=== PATIENT | male | born 1970 | race Caucasian/White ===

== ENCOUNTER 2019-03-18 11:04 | Day surgery (SDC) | payer BC ==
--- NOTE | 2019-03-18 08:00 | HP ---
DATE OF SURGERY: 03/18/2019 ADMISSION DIAGNOSIS: Left inguinal hernia. ANTICIPATED PROCEDURE: Repair. HISTORY OF PRESENT ILLNESS: The patient has moderate sized symptomatic left inguinal hernia. PAST MEDICAL HISTORY: ALLERGIES: NONE. MEDICATIONS: Metoprolol, atorvastatin. PAST SURGICAL HISTORY: Eardrum replacement. SOCIAL HISTORY: Negative. FAMILY HISTORY: Negative. REVIEW OF SYSTEMS: Hypertension, cholesterol. PHYSICAL EXAMINATION: VITAL SIGNS: Normal. CHEST: Clear. COR: Regular. ABDOMEN: Left inguinal hernia. IMPRESSION: Symptomatic left inguinal hernia. PLAN: Repair.
[~2019-03-18 11:04] MED LIST: KEFZOL 1 GM ONE; Lactated Ringers 0 ML IV ONE; Sensorcaine 0.25% 10 ML ONE
[2019-03-18] MEDS ORDERED: Lactated Ringers 1,000 ML IV SCH (11:30)
[2019-03-18] MEDS ORDERED: CEFAZOLIN 2 GM-D5W BAG** 2 GM/50 ML ML IV SCH (11:30)
[2019-03-18] MEDS ORDERED: Versed 2 MG/2 ML Injection ONE (11:53)
[2019-03-18] MEDS ORDERED: DIPRIVAN 200 MG/20 ML IV ONE (11:53)
[2019-03-18] MEDS ORDERED: SUBLIMAZE 250 MCG/5 ML ONE (11:53)
[2019-03-18] MEDS ORDERED: TORAdol 30 mg Injection ONE (14:39)
[2019-03-18] MEDS ORDERED: MORPHINE SULFATE 10 MG/ML ONE (14:39)
[2019-03-18] MEDS ORDERED: Zofran 4 MG/2 ML VIAL ONE (14:39)
[2019-03-18] MEDS ORDERED: SUBLIMAZE 100 MCG/2 ML ONE (14:48)
[2019-03-18] MEDS ORDERED: NORCO 7.5/325 MG TAB PO PRN (15:43)
[2019-03-18] MEDS ORDERED: NORCO 7.5/325 MG TAB ONE (15:45)
[2019-03-18 16:19] VITALS: O2SAT 98
[2019-03-18 16:49] VITALS: BP 142/62; PULSE 59
--- NOTE | 2019-03-19 08:05 | OP ---
SURGERY DATE/TIME: 03/18/2019 1334 PREOPERATIVE DIAGNOSIS: Symptomatic left inguinal hernia. POSTOPERATIVE DIAGNOSIS: Symptomatic left inguinal hernia. PROCEDURE: Left inguinal herniorrhaphy with mesh. SURGEON: Evaristo Walden M.D. ANESTHESIA: General. COMPLICATIONS: None. CONDITION: Stable. INDICATION: The patient with symptomatic left inguinal hernia. DESCRIPTION OF PROCEDURE: Taken to surgery. General anesthetic. Routine prep and drape. Kidney rest was up. 0.25% Marcaine. Time out performed. Curvilinear incision. External oblique opened. A 3 inch indirect hernia sac. There was incarcerated omentum. A band was cut. The omentum reduced. High ligation of sac with 0 Prolene under direct visualization. The floor was reinforced with 1 x 4 mesh Patel's ligament type fashion with 0 Prolene making sure not to entrap any underlying nerve fibers. Internal ring was one clamp tight. Cord, ilioinguinal nerve laid back in natural position. External oblique closed with 0 Vicryl. Jimena fascia closed with 2-0 Vicryl. Skin closed 4-0 Vicryl. Sterile dressing applied. The patient tolerated the procedure satisfactorily.
== END 2019-03-18 16:55 | disposition home or self-care (01) ==
LOC: SDC 11:04
PROVIDERS: ATTEND Surgery
DX: K40.90 Unilateral inguinal hernia, without obstruction or gangrene, not specified as recurrent (principal); I10 Essential (primary) hypertension; E78.00 Pure hypercholesterolemia, unspecified
CPT/HCPCS: 49505; C1781; J0690; J1885; J2250; J2270; J2405; J2704; J3010; A9270-GY

== ENCOUNTER 2020-07-24 00:04 | Emergency (ER) | payer BC ==
[2020-07-24] MEDS ORDERED: Ativan 1 MG PO ONE (00:17)
--- NOTE | 2020-07-24 00:17 | ERPHSYRPT ---
- History of Present Illness Time Seen by Provider: 07/24/20 00:06 Source: patient Exam Limitations: no limitations Physician History: About 1 hour ago pt started itching and erupted in hives all over with shortness of air. Pt denies chest pain, vomiting, abdominal pain, nausea. EMS states they gave 125mg solumedrol IV. Allergies/Adverse Reactions: No Known Drug Allergies Allergy (Unverified 03/18/19 11:20) Home Medications: Aspirin EC 81 mg [Ecotrin 81 mg] 81 mg PO DAILY 03/18/19 [History] Atorvastatin Calcium [Lipitor] 10 mg PO DAILY 03/18/19 [History] Metoprolol Succinate 50 mg [Toprol Xl 50 MG] 50 mg PO DAILY 03/18/19 [History] - Review of Systems Constitutional: No Fever Respiratory: Dyspnea Cardiac: No Chest Pain Abdominal/Gastrointestinal: No Abdominal Pain, No Nausea, No Vomiting Musculoskeletal: No Neck Pain Skin: Rash (hives about 1 hour ago.) Neurological: No Headache All Other Systems: Reviewed and Negative - Past Medical History Pertinent Past Medical History: Yes Neurological History: No Pertinent History ENT History: No Pertinent History Cardiac History: High Cholesterol, Hypertension Respiratory History: No Pertinent History Endocrine Medical History: Other Musculoskeletal History: No Pertinent History GI Medical History: Hernia History: No Pertinent History Psycho-Social History: No Pertinent History Male Reproductive Disorders: No Pertinent History Other Medical History: pre-diabetic- diet controlled. 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" - Past Surgical History Past Surgical History: Yes Neuro Surgical History: No Pertinent History Cardiac: No Pertinent History Respiratory: No Pertinent History Gastrointestinal: No Pertinent History Genitourinary: No Pertinent History Musculoskeletal: No Pertinent History Male Surgical History: Vasectomy Other Surgical History: ear drum replacement left side - Social History Smoking Status: Never smoker Exposure to second hand smoke: No Drug Use: none - Nursing Vital Signs Nursing Vital Signs: Initial Vital Signs Pulse Rate 102 H 07/24/20 00:09 Respiratory Rate 18 07/24/20 00:09 Blood Pressure 154/93 07/24/20 00:09 O2 Sat by Pulse Oximetry 98 07/24/20 00:09 Pain Scale Pain Intensity 0 - Physical Exam General Appearance: alert Eye Exam: PERRL/EOMI Ears, Nose, Throat Exam: pharynx normal, other (no pharyngeal edema) Neck Exam: normal inspection Respiratory Exam: normal breath sounds Cardiovascular Exam: normal heart sounds Gastrointestinal/Abdomen Exam: soft, normal bowel sounds Back Exam: normal inspection Extremity Exam: No pedal edema Neurologic Exam: alert, cooperative Skin Exam: rash (hives over extremities, chest & abdomen) SpO2 Interpretation: normal SpO2: 98 O2 Delivery: Room Air - Course Nursing assessment & vital signs reviewed: Yes EKG Interpreted by Me: RATE (82), Sinus Rhythm, NORMAL AXIS, NORMAL INTERVALS - CT Exams Chest CT Interpretation: Tele-radiologist Report (Within limitations of the study, no pulmonary emboli.) Ordered Tests: Active Orders 24 hr Category Date Time Status Rubber Goods Assembler STAT Care 07/24/20 00:17 Active EKG-ER Only STAT Care 07/24/20 00:17 Active IV Insertion STAT Care 07/24/20 00:17 Active Pulse Oximetry (ED) STAT Care 07/24/20 00:17 Active CHEST 2 VIEWS (PA AND LAT) Stat Exams 07/24/20 00:19 Taken CHEST WITH CONTRAST [CT] Stat Exams 07/24/20 01:25 Taken CBC W DIFF Stat Lab 07/24/20 00:40 Completed CMP Stat Lab 07/24/20 00:40 Completed D-DIMER QUANTITATIVE Stat Lab 07/24/20 00:40 Completed MAGNESIUM Stat Lab 07/24/20 00:40 Completed NT PRO BNP Stat Lab 07/24/20 00:40 Completed TROPONIN Q3H Lab 07/24/20 00:40 Completed TROPONIN Q3H Lab 07/24/20 03:30 Ordered TROPONIN Q3H Lab 07/24/20 06:30 Ordered TROPONIN Q3H Lab 07/24/20 09:30 Ordered TROPONIN Q3H Lab 07/24/20 12:30 Ordered Medication Summary Discontinued Medications Generic Name Dose Route Start Last Admin Trade Name Freq PRN Reason Stop Dose Admin Lorazepam 1 mg 07/24/20 00:17 07/24/20 00:21 Ativan 1 Mg PO 07/24/20 00:18 1 mg STAT ONE Administration Lorazepam Confirm 07/24/20 00:20 Ativan 1 Mg Administered 07/24/20 00:21 Dose 1 mg .ROUTE .[employer] ONE Lab/Rad Data: Laboratory Result Diagrams 07/24/20 00:40 07/24/20 00:40 Laboratory Results 07/24/20 07/24/20 07/24/20 Range/Units 00:40 00:40 00:40 WBC (4.0-10.5) K/mm3 RBC (4.1-5.6) M/mm3 Hgb (12.5-18.0) gm/dl Hct (42-50) % MCV (78-100) fl MCH (26-32) pg MCHC (32-36) g/dl RDW (11.5-14.0) % Plt Count (150-450) K/mm3 MPV (7.5-11.0) fl Gran % (36.0-66.0) % Eos # (Auto) (0-0.5) Absolute Lymphs (auto) (1.0-4.6) Absolute Monos (auto) (0.0-1.3) Lymphocytes % (24.0-44.0) % Monocytes % (0.0-12.0) % Eosinophils % (0.00-5.0) % Basophils % (0.0-0.4) % Absolute Granulocytes (1.4-6.9) Basophils # (0-0.4) D-Dimer 730 H* (215-500) ng/mL Sodium 139 (137-145) mmol/L Potassium 3.5 (3.5-5.1) mmol/L Chloride 109 H (98-107) mmol/L Carbon Dioxide 24 (22-30) mmol/L Anion Gap 9.4 (5-15) MEQ/L BUN 15 (9-20) mg/dL Creatinine 0.74 (0.66-1.25) mg/dL Estimated GFR > 60.0 ML/MIN Glucose 153 H (74-106) mg/dL Calcium 8.3 L (8.4-10.2) mg/dL Magnesium 1.9 (1.6-2.3) mg/dL Total Bilirubin 1.20 (0.2-1.3) mg/dL AST 26 (17-59) U/L ALT 26 (0-50) U/L Alkaline Phosphatase 92 (38-126) U/L Troponin I < 0.012 (0.000-0.034) ng/mL NT-Pro-B Natriuret Pep 21.6 (0-900) pg/mL Serum Total Protein 6.5 (6.3-8.2) g/dL Albumin 3.9 (3.5-5.0) g/dL 07/24/20 Range/Units 00:40 WBC 8.8 (4.0-10.5) K/mm3 RBC 4.73 (4.1-5.6) M/mm3 Hgb 14.4 (12.5-18.0) gm/dl Hct 43.5 (42-50) % MCV 92.0 (78-100) fl MCH 30.4 (26-32) pg MCHC 33.1 (32-36) g/dl RDW 12.9 (11.5-14.0) % Plt Count 205 (150-450) K/mm3 MPV 10.6 (7.5-11.0) fl Gran % 70.2 H (36.0-66.0) % Eos # (Auto) 0.32 (0-0.5) Absolute Lymphs (auto) 1.70 (1.0-4.6) Absolute Monos (auto) 0.61 (0.0-1.3) Lymphocytes % 19.3 L (24.0-44.0) % Monocytes % 6.9 (0.0-12.0) % Eosinophils % 3.6 (0.00-5.0) % Basophils % 0.0 (0.0-0.4) % Absolute Granulocytes 6.20 (1.4-6.9) Basophils # 0 (0-0.4) D-Dimer (215-500) ng/mL Sodium (137-145) mmol/L Potassium (3.5-5.1) mmol/L Chloride (98-107) mmol/L Carbon Dioxide (22-30) mmol/L Anion Gap (5-15) MEQ/L BUN (9-20) mg/dL Creatinine (0.66-1.25) mg/dL Estimated GFR ML/MIN Glucose (74-106) mg/dL Calcium (8.4-10.2) mg/dL Magnesium (1.6-2.3) mg/dL Total Bilirubin (0.2-1.3) mg/dL AST (17-59) U/L ALT (0-50) U/L Alkaline Phosphatase (38-126) U/L Troponin I (0.000-0.034) ng/mL NT-Pro-B Natriuret Pep (0-900) pg/mL Serum Total Protein (6.3-8.2) g/dL Albumin (3.5-5.0) g/dL - Progress Progress: improved Counseled pt/family regarding: lab results, need for follow-up, rad results - Departure Departure Disposition: Home Clinical Impression: Hives, Dyspnea Condition: Stable Critical Care Time: No Referrals: BEV NORTH MD [Primary Care Provider] - Instructions: Hives (DC), Shortness of Breath (Dyspnea) (DC) Additional Instructions: Follow up with private doctor today. Forms: Work/School Release Form Prescriptions: Hydroxyzine HCl 25 mg [Atarax 25 mg] 50 mg PO Q4H PRN PRN #30 tablet PRN Reason: Itching Methylprednisolone Packet [Medrol Dosepack] 4 mg PO UD #30 packet
[2020-07-24] MEDS ORDERED: Ativan 1 MG ONE (00:20)
[2020-07-24 01:01] LABS: Basophil (Absolute #) 0 (0-0.4); Eosinophil % 3.6 % (0.00-5.0); Eosinophil (Absolute #) 0.32 (0-0.5); Hematocrit 43.5 % (42-50); Hemoglobin 14.4 gm/dl (12.5-18.0); Lymphocytes % 19.3 % (24.0-44.0); Mean Corpuscular Hemoglobin 30.4 pg (26-32); Mean Corpuscular Hgb Concent. 33.1 g/dl (32-36); Mean Platelet Volume 10.6 fl (7.5-11.0); Monocyte (Absolute #) 0.61 (0.0-1.3); Monocytes % 6.9 % (0.0-12.0); Neutrophil % 70.2 % (36.0-66.0); Platelet Count 205 K/mm3 (150-450); Red Blood Count 4.73 M/mm3 (4.1-5.6); Red Cell Distribution Width 12.9 % (11.5-14.0); White Blood Count 8.8 K/mm3 (4.0-10.5)
[2020-07-24 01:09] LABS: ALBUMIN 3.9 g/dL (3.5-5.0); ALKALINE PHOSPHATASE 92 U/L (38-126); ANION GAP 9.4 MEQ/L (5-15); BLOOD UREA NITROGEN 15 mg/dL (9-20); CHLORIDE 109 mmol/L (98-107); Calcium 8.3 mg/dL (8.4-10.2); Carbon Dioxide 24 mmol/L (22-30); Creatinine 1 0.74 mg/dL (0.66-1.25); EST GLOMERULAR FILTRATION RATE > 60.0 ML/MIN; Glucose 153 mg/dL (74-106); MAGNESIUM 1.9 mg/dL (1.6-2.3); NT PRO BNP 21.6 pg/mL (0-900); Potassium 3.5 mmol/L (3.5-5.1); SGOT/AST 26 U/L (17-59); SGPT/ALT 26 U/L (0-50); SODIUM 139 mmol/L (137-145); Total Protein 6.5 g/dL (6.3-8.2)
[2020-07-24 03:06] VITALS: O2SAT 98
[2020-07-24 03:09] VITALS: BP 103/68; PULSE 84
--- NOTE | 2020-07-24 09:04 | XRAY ---
Indication: Allergic reaction. Hives. Difficulty breathing. Comparison: None PA/lateral chest demonstrates normal heart, lungs, and bony thorax.
--- NOTE | 2020-07-24 09:04 | XRAY ---
Indication: Allergic reaction. Difficulty breathing. Elevated d-dimer. Multiple contiguous axial images obtained through the chest using 80 cc Isovue 370 contrast and PE protocol. Comparison: None. There is satisfactory opacification of the pulmonary arteries to include the lobar and segmental branches. No pulmonary embolus. Heart is not enlarged. Aorta is normal in course and caliber. No pathologic mediastinal/hilar lymphadenopathy. Distal esophagus demonstrates circumferential wall thickening, possible esophagitis. Lungs demonstrates moderate bilateral dependent atelectasis. No suspicious pulmonary mass, infiltrate, consolidation, or effusion. Bony thorax intact. Limited upper abdomen demonstrates 1 cm calcified splenic artery aneurysm. Impression: 1. Negative pulmonary embolus. No acute cardiopulmonary abnormalities. 2. Distal esophageal circumferential wall thickening. Rule out esophagitis. 3. Incidental small calcified splenic artery aneurysm. Comment: Preliminary interpretation was made by [facility]. No critical discrepancy.
== END 2020-07-24 03:25 | disposition home or self-care (01) ==
LOC: ED 00:04
DX: L50.9 Urticaria, unspecified (principal); R06.00 Dyspnea, unspecified
CPT/HCPCS: 36415; 71046; 71260; 80053; 83735; 83880; 84484; 85025; 85379; 93005; 93041; 94760; 99284; A9270-GY

== ENCOUNTER 2023-07-27 23:56 | Emergency (ER) | payer BC ==
[2023-07-28] MEDS ORDERED: BENADRYL 25 MG CAPSULE PO ONE (00:17)
[2023-07-28] MEDS ORDERED: solu-MEDROL 125 MG, Sterile H2O 10 ml 2 ML IV ONE ×2 (00:17)
[2023-07-28] MEDS ORDERED: Pepcid 20 MG VIAL IV ONE ×2 (00:17→00:25)
--- NOTE | 2023-07-28 00:20 | ERPHSYRPT ---
- History of Present Illness Time Seen by Provider: 07/28/23 00:18 Source: patient Exam Limitations: no limitations Physician History: Patient is a 53-year-old male presents to our ED for evaluation of pruritus hives on his lower trunk and his legs. Patient has a history of allergy to bee pollen and penicillin. Patient denies exposure to any of these sources. Symptoms started just prior to arrival. Patient had similar symptoms about 5 years ago. No new exposures. No difficulty breathing. No difficulty swallowing. Symptoms are mild to moderate in intensity. No specific worsening or improving factors. Patient voices no other complaints or concerns at this time. Portions of this note were created with voice recognition technology. There may be grammatical, spelling, punctuation or sound alike errors Timing/Duration: today Severity: moderate Modifying Factors: Improves With: nothing Associated Symptoms: denies symptoms Allergies/Adverse Reactions: bee pollen Allergy (Intermediate, Verified 07/28/23 00:13) Swelling Penicillins Allergy (Intermediate, Verified 07/28/23 00:13) Nausea and Vomiting Home Medications: Aspirin EC 81 mg [Ecotrin 81 mg] 81 mg PO DAILY 03/18/19 [History] Atorvastatin Calcium [Lipitor] 10 mg PO DAILY 03/18/19 [History] Metoprolol Succinate 50 mg [Toprol Xl 50 MG] 50 mg PO DAILY 03/18/19 [History] Hx Tetanus, Diphtheria Vaccination/Date Given: Yes Hx Influenza Vaccination/Date Given: No Hx Pneumococcal Vaccination/Date Given: No - Review of Systems Constitutional: No Symptoms, No Fever, No Chills Eyes: No Symptoms Ears, Nose, & Throat: No Symptoms Respiratory: No Symptoms, No Cough, No Dyspnea Cardiac: No Symptoms, No Chest Pain, No Edema, No Syncope Abdominal/Gastrointestinal: No Symptoms, No Abdominal Pain, No Nausea, No Vomiting, No Diarrhea Genitourinary Symptoms: No Symptoms, No Dysuria Musculoskeletal: No Symptoms, No Back Pain, No Neck Pain Skin: No Symptoms, No Rash Neurological: No Symptoms, No Dizziness, No Focal Weakness, No Sensory Changes Psychological: No Symptoms Endocrine: No Symptoms Hematologic/Lymphatic: No Symptoms Immunological/Allergic: No Symptoms All Other Systems: Reviewed and Negative - Past Medical History Pertinent Past Medical History: Yes Neurological History: No Pertinent History ENT History: No Pertinent History Cardiac History: High Cholesterol, Hypertension Respiratory History: No Pertinent History Endocrine Medical History: Other Musculoskeletal History: No Pertinent History GI Medical History: Hernia History: No Pertinent History Psycho-Social History: No Pertinent History Male Reproductive Disorders: No Pertinent History Other Medical History: pre-diabetic- diet controlled. 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" - Past Surgical History Past Surgical History: Yes Neuro Surgical History: No Pertinent History Cardiac: No Pertinent History Respiratory: No Pertinent History Gastrointestinal: No Pertinent History Genitourinary: No Pertinent History Musculoskeletal: No Pertinent History Male Surgical History: Vasectomy Other Surgical History: ear drum replacement left side - Social History Smoking Status: Never smoker Exposure to second hand smoke: No Drug Use: none - Nursing Vital Signs Nursing Vital Signs: Initial Vital Signs Pulse Rate 77 07/28/23 00:11 Respiratory Rate 16 07/28/23 00:11 Blood Pressure 141/102 07/28/23 00:11 O2 Sat by Pulse Oximetry 96 07/28/23 00:11 Pain Scale Pain Intensity 0 - Physical Exam General Appearance: no apparent distress, alert Eye Exam: PERRL/EOMI, eyes nml inspection Ears, Nose, Throat Exam: normal ENT inspection, TMs normal, pharynx normal, moist mucous membranes Neck Exam: normal inspection, non-tender, supple, full range of motion Respiratory Exam: normal breath sounds, lungs clear, airway intact, No respiratory distress Cardiovascular Exam: regular rate/rhythm, normal heart sounds, normal peripheral pulses Gastrointestinal/Abdomen Exam: soft, normal bowel sounds, No tenderness, No mass Back Exam: normal inspection, normal range of motion, No CVA tenderness, No vertebral tenderness Extremity Exam: normal inspection, normal range of motion, pelvis stable Neurologic Exam: alert, oriented x 3, cooperative, normal mood/affect, nml cer ebellar function, nml station & gait, sensation nml, No motor deficits Skin Exam: normal color, warm, dry, No rash Lymphatic Exam: No adenopathy SpO2 Interpretation: normal SpO2: 98 O2 Delivery: Room Air - Course Nursing assessment & vital signs reviewed: Yes Ordered Tests: Medication Summary Discontinued Medications Generic Name Dose Route Start Last Admin Trade Name Freq PRN Reason Stop Dose Admin Methylprednisolone Sodium 0 mg 07/28/23 00:17 07/28/23 00:34 Succinate 125 mg/ Sterile IV 07/28/23 00:18 125 mg Water 2 ml STAT ONE Administration Diphenhydramine HCl 50 mg 10/30/23 00:17 07/28/23 00:32 Diphenhydramine Hcl 25 Mg Capsule PO 07/28/23 00:18 50 mg STAT ONE Administration Diphenhydramine HCl Confirm 07/28/23 00:25 Diphenhydramine Hcl 25 Mg Capsule Administered 07/28/23 00:26 Dose 25 mg .ROUTE .STK-MED ONE Diphenhydramine HCl Confirm 07/28/23 00:33 Diphenhydramine Hcl 25 Mg Capsule Administered 07/28/23 00:34 Dose 25 mg .ROUTE .STK-MED ONE Famotidine 20 mg 07/28/23 00:17 07/28/23 00:34 Famotidine 20 Mg/1 Vial IV 07/28/23 00:18 20 mg STAT ONE Administration Famotidine Confirm 07/28/23 00:25 Famotidine 20 Mg/1 Vial Administered 07/28/23 00:26 Dose 20 mg IV .STK-MED ONE Methylprednisolone Sodium Succinate Confirm 07/28/23 00:25 Methylprednis Sod Succ 125 Mg/2 Ml Vial Administered 07/28/23 00:26 Dose 125 mg .ROUTE .STK-MED ONE Sterile Water Confirm 07/28/23 00:25 Water For Injection,Sterile 10 Ml Vial Administered 07/28/23 00:26 Dose 10 ml IJ .STK-MED ONE - Progress Progress: improved Progress Note: Patient is a 53-year-old male presents to our ED for evaluation of pruritus and hives. Area involvement is lower abdomen and extremities. No airway compromise. Patient received 125 mg dose of Solu-Medrol, 20 mg of famotidine as well as 50 mg of diphenhydramine. Patient reassessed. Symptoms resolved. Pruritus resolved. Hives resolved. He prescription for prednisone and famotidine was forwarded to patient's pharmacy. Patient has Benadryl at home. Patient also received the prescription for EpiPen. Patient agrees to follow-up with his primary care doctor within 48 hours for reevaluation. Vitals are stable. Patient has no other complaints. Will discharge home. Portions of this note were created with voice recognition technology. There may be grammatical, spelling, punctuation or sound alike errors Complexity of problems addressed is moderate, acute complicated No critical care time Complaints of data reviewed and analyzed is none. Diagnosis made based on history and physical examination. No specialized testing ordered Risk of complication and or risk of morbidity/mortality of patient management is moderate. A prescription for prednisone famotidine and EpiPen forwarded to patient's pharmacy. Vital stable. Time spent to discharge patient is approximately 15 minutes. Plan of care established for shared decision making. No social determinants of health present impede follow-up. Portions of this note were created with voice recognition technology. There may be grammatical, spelling, punctuation or sound alike errors 07/28/23 02:19 Counseled pt/family regarding: diagnosis, need for follow-up - Departure Departure Disposition: Home Clinical Impression: Allergic reaction, Hives, Pruritus Condition: Stable Critical Care Time: No Referrals: BEV NORTH MD [Primary Care Provider] - Follow up/PCP as directed Additional Instructions: Discharge/Care Plan VIET CANAS was seen on 07/28/23 in the Emergency Room. The patient was counseled regarding Diagnosis,Lab results, Imaging studies, need for follow up and when to return to the Emergency Room. Prescriptions given: Discharge Note I have spoken with the patient and/or caregivers. I have explained the patient's condition, diagnosis and treatment plan based on the information available to me at this time. I have answered the patient's and/or caregiver's questions and addressed any concerns. The patient and/or caregivers have as good understanding of the patient's diagnosis, condition and treatment plan as can be expected at this point. The vital signs have been stable. The patient's condition is stable and appropriate for discharge from the emergency department. The patient will pursue further outpatient evaluation with the primary care physician or other designated or consulting physician as outlined in the discharge instructions. The patient and/or caregivers are agreeable to this plan of care and follow-up instructions have been explained in detail. The patient and/or caregivers have received these instruction. The patient/and or caregivers are aware that any significant change in condition or worsening of symptoms should prompt an immediate return to this or the closest emergency department or call 911. Prescriptions: Prednisone 10 mg [Deltasone 10 mg] 40 mg PO DAILY 3 Days #12 tablet EPINEPHrine [Epipen 2-Stalin] 0.3 mg IM DAILY PRN 1 Days #1 unit PRN Reason: Allergies Famotidine 20 mg [Pepcid 20 MG] 20 mg PO BID 7 Days #14 tablet
[2023-07-28 00:23] VITALS: TEMP 97.6
[2023-07-28] MEDS ORDERED: solu-MEDROL ONE (00:25)
[2023-07-28] MEDS ORDERED: Sterile H2O 10 ml IJ ONE (00:25)
[2023-07-28] MEDS ORDERED: BENADRYL 25 MG CAPSULE ONE ×2 (00:25→00:33)
[2023-07-28 00:41] VITALS: RESP 20
[2023-07-28 02:19] VITALS: O2SAT 98
[2023-07-28 02:23] VITALS: BP 106/73; PULSE 71
== END 2023-07-28 02:45 | disposition home or self-care (01) ==
LOC: ED 23:56
DX: T78.40XA Allergy, unspecified, initial encounter (principal); L50.0 Allergic urticaria; E78.5 Hyperlipidemia, unspecified; I10 Essential (primary) hypertension; Z79.52 Long term (current) use of systemic steroids; Z79.899 Other long term (current) drug therapy
CPT/HCPCS: 36000; 96374; 96375; 99284; J2930; A9270-GY